=== PATIENT | female | born 1985 | race African-American/Black ===

== ENCOUNTER 2017-06-26 09:49 | Day surgery (SDC) | payer OTHER ==
[2017-06-26 11:06] VITALS: BP 120/76; TEMP 98; BMI 27.4
--- NOTE | 2017-06-26 16:51 | PRG ---
DATE OF SERVICE: 06/26/2017 OR ER ENCOUNTER PRIMARY OB: Clinic. CHIEF COMPLAINT: Abdominal pain and spotting. HISTORY OF PRESENT ILLNESS: The patient is a 32-year-old G5, P4 female with an intrauterine pregnan cy at 36 weeks and 6 days who presented to labor and delivery by EMS with complaints of abdominal pa in since last night and spotting. She denies any leakage of fluid, any persistent bleeding. She re ports she is having good movement. She denies any falls or illness or fever, headache, chest pain, shortness of breath, nausea or vomiting. She denies hip or knee problems, urinary urgency or frequency. PAST MEDICAL HISTORY: She is deaf. PAST SURGICAL HISTORY: She has had a LEEP procedure. OBSTETRIC HISTORY: She has had 4 term vaginal births, essential hypertension, off medication during this so far. SOCIAL HISTORY: Denies drug, alcohol or tobacco use. ALLERGIES: No known drug allergies. MEDICATIONS: vitamins. OB LABS: Unavailable. REVIEW OF SYSTEMS: Per HPI. PHYSICAL EXAMINATION: VITAL SIGNS: Blood pressure is 117/73, heart rate of 88, respiratory rate of 16, temperature 98.0. GENERAL: She appears to be in no acute distress. She is alert and oriented, and cooperative and pl easant to interact with. HEAD: Normocephalic, atraumatic. LUNGS: Clear to auscultation bilaterally. HEART: Regular rate and rhythm. ABDOMEN: Soft and gravid and nontender to palpation. EXTREMITIES: Nontender with minimal edema. GENITOURINARY: Perineum was without masses, lesions or erythema. She does have a white discharge c oming from the perineum. Cervix is closed and thick and very posterior. REGULATORY LEADER-3 was collected for yaima luation. heart tracing performed for threatened labor. Baseline in the 140s with moderate long-term va riability, positive accelerations, no decelerations. She has some irritability on the monitor, but no regular contraction pattern. REGULATORY LEADER-3 was collected and found to be positive for yeast. ASSESSMENT AND PLAN: The patient is a 32-year-old female G5, P4 with an intrauterine at 3 6 weeks and 6 days who is presenting with abdominal pains and spotting. She is having occasional co ntractions. Baby appears to have a category 1 tracing. We did provide 2 mg of Stadol IM to help wi th her discomfort during her stay and has been given a prescription of Diflucan to be taken 150 mg o nce and is also been given the option to take a vaginal cream over the counter such as Monistat as d irected on the packaging. The patient has a followup appointment with Clinic next week, wh ich she has been encouraged to keep.
== END 2017-06-26 12:40 | disposition home or self-care (01) ==
LOC: L&D/OP 09:49
PROVIDERS: ATTEND Obstetrics & Gynecology
DX: O99.89 Other specified diseases and conditions complicating pregnancy, childbirth and the puerperium (principal); R10.30 Lower abdominal pain, unspecified; O26.853 Spotting complicating pregnancy, third trimester; H91.90 Unspecified hearing loss, unspecified ear; I10 Essential (primary) hypertension; Z3A.36 36 weeks gestation of pregnancy; Z79.899 Other long term (current) drug therapy; Z98.890 Other specified postprocedural states
CPT/HCPCS: 87480; 87510; 87660; 96372; J0595

== ENCOUNTER 2017-07-12 15:47 | Day surgery (SDC) | payer OTHER ==
[2017-07-12 16:40] VITALS: BMI 25.5
[2017-07-12] MEDS ORDERED: FLU VACC QS2017-18 36 mo. & older 0.5 ML SYRINGE IM ONE (17:00)
--- NOTE | 2017-07-12 21:24 | PRG ---
DATE OF ENCOUNTER: 07/12/2017 PRIMARY OB: Clinic. CHIEF COMPLAINT: Abdominal pain. HISTORY OF PRESENT ILLNESS: The patient is a 32-year-old G5, P4 female with an intrauterine pregnan cy at 37 weeks and 3 days, who is presenting to Labor and Delivery today with abdominal pain that be bossman yesterday. She reports that they have been getting more frequent and more intense. Denies any leakage of fluid or vaginal bleeding, any recent illness, fever, fall, headache, chest pain, shortne ss of breath, nausea, or vomiting. She denies any new rashes. She denies significant bleeding or u rinary urgency or frequency. PAST MEDICAL HISTORY: Significant for hypertension, off medications. The patient has a history of an abnormal Pap smear with a LEEP in 2016. The patient has deafness. LEEP OBSTETRIC HISTORY: She has had 4 term deliveries. SOCIAL HISTORY: Denies drug, alcohol, or tobacco use. ALLERGIES: No known drug allergies. MEDICATIONS: vitamins. OB LABS: Unavailable at this time. REVIEW OF SYSTEMS: Per HPI. PHYSICAL EXAMINATION: VITAL SIGNS: Blood pressure is 137/81, heart rate of 67, respiratory rate 20, satting 100% on room air, and temperature 98.5. GENERAL: She appears to be in no acute distress with some minor distress with contractions. She is alert and oriented, and cooperative and pleasant to interact with and is able to read lips. HEAD: Normocephalic, atraumatic. LUNGS: Clear to auscultation bilaterally. HEART: Regular rate and rhythm. ABDOMEN: Gravid and soft in between contractions and nontender. EXTREMITIES: Nontender, nonedematous. Her cervical exam has been unchanged over 2 hours at 1:15, -3 station. heart tracing performed for threatened labor, baseline for approximately 1 hour. Baseline is in the 140s with moderate long-term variability, positive accelerations, no decelerations. She is h aving contractions about every 6-7 minutes with occasional contractions every 3 minutes. ASSESSMENT AND PLAN: The patient is a 32-year-old G5, P4 female in latent labor and has had no armstrong ge in her cervix over 2 hours. She has been given 6 mg of morphine IM and have been discharged home with term labor precautions. She is to follow up with Clinic as scheduled or return here if necessary. The fetus has a category 1 tracing reactive NST.
== END 2017-07-12 19:05 | disposition home or self-care (01) ==
LOC: L&D/OP 15:47
PROVIDERS: ATTEND Obstetrics & Gynecology
DX: O99.89 Other specified diseases and conditions complicating pregnancy, childbirth and the puerperium (principal); R10.9 Unspecified abdominal pain; O16.3 Unspecified maternal hypertension, third trimester; Z79.899 Other long term (current) drug therapy; Z3A.37 37 weeks gestation of pregnancy
CPT/HCPCS: 96372; J2270

== ENCOUNTER 2017-07-15 21:56 | Day surgery (SDC) | payer OTHER ==
[2017-07-15 22:35] LABS: Amnisure Test No Membranes Rupture (No Rupture)
[2017-07-15 22:40] VITALS: BP 164/77; TEMP 98.3; BMI 26.2
[2017-07-15] MEDS ORDERED: Ondansetron ODT 4 MG TAB SL SCH (23:30)
[2017-07-15 23:35] LABS: #Eosinphils 0.2 thou/uL (0.0-0.7); #Lymphocytes 2.7 thou/uL (1.20-3.40); #Neutrophils 6.3 thou/uL (1.40-6.50); %Basophils 0.2 % (0.0-1.0); %Eosinophils 2.1 % (0.0-10.0); %Lymphocytes 26.2 % (21.0-51.0); %Monocytes 10.1 % (0.0-10.0); Hematocrit 32.4 % (36.0-47.0); Mean Platelet Volume 6.1 fL (7.4-10.4); Red Blood Cell (RBC) Count 3.35 mill/uL (4.20-5.40); White Blood Cell (WBC) Count 10.2 thou/uL (4.8-10.8)
[2017-07-15 23:46] LABS: Bilirubin Negative (Negative); Blood, Urine Negative (Negative); Glucose, Urine (Dipstick) Negative (Negative); Ketone, Urine Negative (Negative); Nitrite Negative (Negative); Protein, Urine (Dipstick) Negative (Neg-Trace)
[2017-07-15 23:48] LABS: Bacteria/HPF None Seen HPF (None Seen); Hyaline Casts/LPF 0-3 HYALINE CAST LPF (0-3 Hyaline); RBC/HPF None Seen HPF (0-3); Squamous Epithelial 0-3 HPF (0-3)
[2017-07-15 23:54] LABS: ALT (SGPT) 9 U/L (8-55); AST (SGOT) 15 U/L (5-34); Alkaline Phosphatase 189 U/L (40-150); Anion Gap 11 mmol/L (10-20); BUN (Urea Nitrogen) 6 mg/dL (7.0-18.7); Bilirubin, Total 0.7 mg/dL (0.2-1.2); Calc. Creatinine Clearance 145 mL/min (70-130); Carbon Dioxide 24 mmol/L (22-29); Chloride 107 mmol/L (98-107); Estimated GFR-MDRD Greater than 90; Globulin 3.6 g/dL (2.4-3.5); Protein, Total 6.8 g/dL (6.0-8.3)
[2017-07-16] MEDS ORDERED: Acetaminophen 325 MG TAB PO PRN (02:46)
[2017-07-16] MEDS ORDERED: FLU VACC QS2017-18 36 mo. & older 0.5 ML SYRINGE IM ONE (09:00)
--- NOTE | 2017-07-16 09:06 | ULT ---
ULTRASOUND OB FOLLOWUP: HISTORY: Evaluate for growth. Hypertension and diabetes. COMPARISON: None. TECHNIQUE: Real-time, watkins scale, and color evaluation of the gravid uterus performed by transabdominal approac h. FINDINGS: Single viable intrauterine with average ultrasound age 37 weeks 6 days. Estimated date of delivery 07/31/17. Estimated weight is 7 pounds 6 ounces. Cervix measures 2.9 cm in length. The placenta appears posteriorly. The renal pelvis measure just under 6 mm bilaterally. Amniotic fluid index measures 13.9 cm. Biparietal diameter: 37 weeks 1 day, 9.14 cm. Head circumference: 38 weeks 3 days, 33.52 cm. Abdominal circumference: 38 weeks 3 days, 34.51 cm. Femur length: 37 weeks 0 days, 7.24 cm. The estimated weight is 33rd percentile. The position is vertex and placental location is posteriorly. Four-chamber heart, stomach, kidneys, right kidney, left kidney, bladder, 3-vessel cord, nose, lips, and cord insertion are all normal. heart rate documented at 132 b.p.m. IMPRESSION: Single viable intrauterine with average ultrasound age 37 weeks 6 days with estimated date of delivery 07/31/17. Estimated weight is 7 pounds 6 ounces, 33rd percentile. POS: [facility]
== END 2017-07-16 06:38 | disposition home or self-care (01) ==
LOC: L&D/OP 21:56
PROVIDERS: ATTEND Obstetrics & Gynecology
DX: O47.1 False labor at or after 37 completed weeks of gestation (principal); O10.913 Unspecified pre-existing hypertension complicating pregnancy, third trimester; O24.313 Unspecified pre-existing diabetes mellitus in pregnancy, third trimester; E11.9 Type 2 diabetes mellitus without complications; H91.90 Unspecified hearing loss, unspecified ear; Z3A.37 37 weeks gestation of pregnancy; Z79.899 Other long term (current) drug therapy; Z87.891 Personal history of nicotine dependence
CPT/HCPCS: 36415; 36416; 76816; 80053; 81001; 82570; 84112; 84156; 85025; 87081; 87480; 87510; 87660; Q0162

== ENCOUNTER 2017-07-16 08:27 | Day surgery (SDC) | payer OTHER ==
--- NOTE | 2017-07-16 08:48 | PDOC.LDHP ---
Labor and Delivery H&P Chief complaint: abdominal pain HPI: 32 yo G5 P 4004 @ 38 weeks by lmp w/ DESMOND of 07/30/2017 presents for sharp abdominal pains that have been continuous since she was discharged this morning @ 0630. She originally presented for painful contractions and fluid loss and had elevated pressures at that time of 160s systolic. The care team at that time did an extensive workup including amnisure, VP3, CBC, CMP protein creatinine ratio and trended bps while pt remained on external monitors. Her monitors revealed contractions q 5 minutes w/ FHTs at that time of 140s mod variability, + accels, neg decels. She reported good movement and denied vaginal bleeding at that time. The amnisure done a few hours ago was negative. CBC showed anemia with Hgb of 11.1 Hct of 32. CMP revealed normal AST ALT of 15 and 9, respectively. Alk phos mildly elevated at 189. Spot protein/creatinine ratio was 13/113.7=.11, negative for s/s of pre-e. Importantly, the pt has a medical h/o htn, dm, hearing loss, poor/non-compliant care. She states she was receiving medical care from her pcp @ [facility], it is unclear what medication she is on for the BP and unclear if she is medicated for her DM. She is a very poor historian and it is difficult to assess if it is the hearing/lip reading communication barrier or if there is underlying developmental delay. She states that her pain is the same location and severity as it was last night and remains unchanged. Denies cp, sob, increased edema, and headache. Current gestational age (weeks): 38 Due date: 07/30/17 Dating criteria: last menstrual period Grav: 5 Para: 4 OB History Details: Blood type O+, RPR NR, Rubella Immune, HpBSAg neg, GBS neg Current complications: pregestational diabetes, hypertension Current medications: other (unknown bp medication) Social history: none - Physical Exam Vital signs reviewed and normal: yes Abnormal vital signs: previous BP 160s sys last night, currently 134/84 General: NAD, resting (no evidence of painful contractions) Heart: RRR Lungs: nonlabored breathing Abdomen: gravid Extremeties: trace edema FHT: category 1 [place] contractions every: mild, q15 min - Vaginal Exam cm dilated: 0 Effacement: 25% Station: -3 - OB Labs Blood type: O RH: positive RPR: negative HEPSAg: negative GBS: negative Urine drug screen: not done - Assessment TIUP @ 38 wks HTN subjective h/o DM - Plan Plan: observation in L&D -: labs all w/in normal limits done this am urine protein 13, urine creatinine 113.7 ratio=.11, amnisure negative ast=15, ALT=9, platelets= 303 VSS, afebrile 130s baseline, + acels, -decels, mod variability. no change since previous check, cervix closed, midposition, 20%, -3. we will dc home with instructions to f/u if increasing severity and frequency of contractions or large gush of fluid consult cm po hydrate, while obs <Jong Mensah - Last Filed: 07/16/17 09:16> - Plan Plan: other (Faculty: agree with above. Handwritten note in chart by me.) <Deandre Zheng - Last Filed: 07/16/17 10:59> Allergies/Adverse Reactions: Allergies Allergy/AdvReac Type Severity Reaction Status Date / Time No Known Allergies Allergy Verified 07/15/17 22:17
[2017-07-16 08:56] VITALS: BMI 25.7
[2017-07-16] MEDS ORDERED: Zolpidem Tartrate 5 MG TAB PO PRN (11:38)
--- NOTE | 2017-07-16 11:56 | PRG ---
DATE OF SERVICE: 07/16/2017 TIME: 1122 a.m. LOCATION: Labor and Delivery This is a post-observation note. In brief, this is a patient of the Clinic, who I evaluated earlier this morning at around 1 0:00 a.m. with the residents (Dr. Juarez and Dr. Bud Mensah, Family Medicine). She has a delgado ndwritten progress note at that time, but I was not able to see the patient due to an emergent prima ry on another patient shortly thereafter. I have since then evaluated the patient and fin d her clinically stable for discharge. There is no evidence of preeclampsia or of true active labor . Cervical exam reveals an internal os that is closed by nurse report with the external os being di lated. Last night she was called 2 cm, but that seems to be the external os. There is no evidence of vaginal bleeding or of ruptured membranes. She has a followup appointment with Clinic t omorrow. We will follow up with any leftover needs.
[2017-07-17] MEDS ORDERED: FLU VACC QS2017-18 36 mo. & older 0.5 ML SYRINGE IM ONE (09:00)
== END 2017-07-16 13:11 | disposition home or self-care (01) ==
LOC: L&D/OP 08:27
PROVIDERS: ATTEND Obstetrics & Gynecology
DX: O99.89 Other specified diseases and conditions complicating pregnancy, childbirth and the puerperium (principal); R10.9 Unspecified abdominal pain; O24.313 Unspecified pre-existing diabetes mellitus in pregnancy, third trimester; E11.9 Type 2 diabetes mellitus without complications; O10.913 Unspecified pre-existing hypertension complicating pregnancy, third trimester; Z3A.38 38 weeks gestation of pregnancy; Z79.899 Other long term (current) drug therapy; Z87.891 Personal history of nicotine dependence
CPT/HCPCS: 36415; 36416; 76816; 80053; 81001; 82570; 84112; 84156; 85025; 87077; 87081; 87389; 87480; 87510; 87660; Q0162

== ENCOUNTER 2018-01-03 13:11 | Emergency (ER) | payer OTHER | END 2018-01-03 14:09 | disposition home or self-care (01) | LOC: ERS 13:11 | DX: Z79.899 Other long term (current) drug therapy; K02.9 Dental caries, unspecified; Z87.891 Personal history of nicotine dependence; I10 Essential (primary) hypertension; K04.7 Periapical abscess without sinus | CPT/HCPCS: 99283 ==

== ENCOUNTER 2019-04-28 23:11 | Emergency (ER) | payer OTHER ==
[2019-04-28] MEDS ORDERED: Acetaminophen 500 MG TAB ONE (23:36)
[2019-04-28] MEDS ORDERED: Tobramycin Sulfate 0.3% Ophth Susp 5 ml Bottle FS SCH (23:45)
== END 2019-04-28 23:56 | disposition home or self-care (01) ==
LOC: ERS 23:11
DX: T16.2XXA Foreign body in left ear, initial encounter (principal); I10 Essential (primary) hypertension; Z87.891 Personal history of nicotine dependence
CPT/HCPCS: 69200

== ENCOUNTER 2019-08-20 18:22 | Day surgery (SDC) | payer OTHER ==
--- NOTE | 2019-08-20 19:35 | PDOC.FPROB ---
FMR OB H&P: HPI - History of Present Illness Chief Complaint: leakage of fluid Indentification: 34 yo G P at 36.3wks History of Present Illness: She presented to L&D for contractions q10-15 minutes and suspected leakage of fluid since last night. She states that she has been having irregular, painful contractions. She also notes that she feels a dribble of fluid after she urinates. She denies leakage of fluid while walking, standing or sitting. She has not needed to use a pad. She only notes "white fluid" after she urinates. She has recently been sexually active with her partner, no new partners. She denies vaginal bleeding, abnormal vaginal discharge, or decreased movement. Primary Care Physician: YOVANNY FMR OB H&P: Current - Care : 6 Para: 5005 Gestational age: 36.3 - OB Labs Blood type: unknown (No records available to review) FMR OB H&P: History - Past Medical History PMH: Possible h/o chronic HTN, not on medication Deafness - has hearing aid and reads lips. Uses sign language. - OB History OB History: , all term vaginal deliveries. - HEAD TRANSFER CLERK History HEAD TRANSFER CLERK History: Denies history of STDs - Surgical History Sx History: Denies - Social History Social History: Denies alcohol, tobacco, or illicit drug use. - Family History Family History: Non contributory FMR OB H&P: Medications - Current Home Medications: Medication Instructions Recorded Confirmed Type Vit No.130/Iron/Folic 1 each PO DAILY 07/12/17 08/20/19 History [ Tablet] Aspirin Chewable 81 mg PO DAILY 08/20/19 08/20/19 History Clotrimazole [Clotrimazole 1% 1 appful VAG HS #1 tube 08/20/19 Rx Vaginal Cream] Ondansetron [Zofran ODT] 4 mg PO Q6HR PRN 08/20/19 08/20/19 History metroNIDAZOLE [Metronidazole] 500 mg PO BID #14 tab 08/20/19 Rx Allergies/Adverse Reactions: Allergies Allergy/AdvReac Type Severity Reaction Status Date / Time No Known Allergies Allergy Verified 07/23/17 20:53 FMR OB H&P: ROS - Review of Systems General: denies: fever/chills, weight/appetite/sleep changes, fatigue Eyes: denies: eye pain, vision changes ENT: reports: nasal congestion. denies: rhinorrhea, sore throat Cardiovascular: denies: chest pain, palpitation, edema Respiratory: denies: cough, congestion, shortness of breath Gastrointestinal: denies: abdominal pain, nausea, vomiting, diarrhea, constipation Genitourinary (Female): reports: polyuria, contractions. denies: incontinence, dysuria, vaginal discharge, vaginal pain, vaginal bleeding Musculoskeletal: denies: pain, stiffness Neurologic: denies: numbness, weakness Integumentary: denies: itching, rash FMR OB H&P: Vital Signs - Maternal Vital signs: 140/79 --> 132/69 - Heart Tones Baseline: 140 Variability: moderate Acceleration: present Deceleration: absent FMR OB H&P: Physical Exam - Physical Exam General: NAD, awake, alert and oriented HEENT: normocephalic and atraumatic, EOMI, MMM, grossly normal vision Deviation from normal: Partially deaf Neck: supple, trachea midline Heart: RRR, normal S1/S2, no murmurs/rubs/gallops General: CTAB, no respiratory distress, good air movement Abdomen: soft, gravid Deviation from normal: TTP in the lower abdomen Musculoskeletal: normal gait and station, pulses present Neurological: cranial nerves II through XII intact Skin: no rash, good tugor, capillary refill <2 seconds Lymphatic: no unusual bruising or bleeding, no purpura, no petechia Psychiatric: intact recent and remote memory, normal mood and affect - Pelvic Exam Vulva: normal hair distribution SVE: Closed, thick and high. Extremely tender to examine. Membranes: Intact FMR OB H&P: Results - Labs Lab results: Laboratory Tests 08/20/19 19:20 Amnio Swab Test No Membranes Rupture VP3 --> Bacterial vaginosis. FMR OB H&P: A/P Disposition: Stable, discharged home w/ labor precautions. Discussion: Date/Time: 08/20/19 193 IUP FHT's reassuring, monitored >20 minutes. Vaginal discharge On physical exam, significant thick white discharge. Sent VP3. Results were bacterial vaginosis. Will d/c home with Metronidazole 500mg for 7 days. F/u with PNC. Leakage of fluid Amnisure negative Sterile speculum exam negative for pooling of fluid. Cervix closed, thick and high. The patient was monitored for >2 hours. She is not in labor. Medication for BV sent to pharmacy, instructed her to f/u with PNC next week. Given labor precautions. This H&P was discussed with Dr. Matthews and Dr. Loera who agree with the above documentation and plan. Addendum - Attending - Attending Attestation Date/Time: 08/21/19 9518 I personally evaluated the patient and discussed the management with Dr. Yeung I agree with the History, Examination, Assessment and Plan documented above with any addition or exceptions noted below. UA unremarkable. VP3 showed BV. Sent flagyl for 1 wk. D/C home. f/u outpatient. FHT reassuring.
[2019-08-20 19:42] LABS: Amnisure Internal Control QC ACCEPTABLE (ACCEPTABLE); Amnisure Test No Membranes Rupture (No Rupture)
[2019-08-20 19:49] VITALS: BMI 28.3
[2019-08-20] MEDS ORDERED: diphenhydrAMINE 25 MG CAP PO SCH (21:15)
[2019-08-20 21:47] LABS: Bacteria/HPF None Seen HPF (None Seen); Bilirubin Negative (Negative); Blood, Urine Negative (Negative); Clarity Clear (Clear); Glucose, Urine (Dipstick) Normal (Negative); Leukocyte Negative Leu/uL (Negative); Nitrite Negative (Negative); Protein, Urine (Dipstick) Negative (Neg-Trace); RBC/HPF None Seen HPF (0-3); Squamous Epithelial 0-3 HPF (0-3); Urobilinogen Normal mg/dL (Less than 2); WBC/HPF 0-3 HPF (0-3)
[2019-08-20 21:49] LABS: Urine Culture Reflex No No
[2019-08-21] MEDS ORDERED: FLU VACC QS2019-20(6MOS UP)/PF 60 MCG/0.5 ML SYRINGE IM ONE (09:00)
== END 2019-08-20 22:10 | disposition home or self-care (01) ==
LOC: L&D/OP 18:22
PROVIDERS: ATTEND Family Medicine
DX: O23.593 Infection of other part of genital tract in pregnancy, third trimester (principal); B96.89 Other specified bacterial agents as the cause of diseases classified elsewhere; O10.913 Unspecified pre-existing hypertension complicating pregnancy, third trimester; Z3A.36 36 weeks gestation of pregnancy; Z79.82 Long term (current) use of aspirin; Z79.899 Other long term (current) drug therapy; Z97.4 Presence of external hearing-aid
CPT/HCPCS: 81001; 84112; 87480; 87510; 87660; Q0163

== ENCOUNTER 2019-08-24 04:45 | Day surgery (SDC) | payer OTHER ==
[2019-08-24 05:30] VITALS: BP 142/82; TEMP 98.8; BMI 28.3
--- NOTE | 2019-08-24 06:31 | PDOC.FPROB ---
FMR OB H&P: HPI - History of Present Illness Chief Complaint: Lower abdominal pain Indentification: 34 yo at 37.0 weeks History of Present Illness: Patient presented to L&D with complaint of lower abdominal pain that started last night around 1800. She says the pain comes and goes, mainly located in epigastric and LLQ areas. She denies loss of fluid, dysuria, vaginal bleeding, abnormal vaginal discharge, or decreased movement. Patient was recently seen on L&D triage on 08/20/2019, UA clean at that time, found to be positive for Gardnerella and was sent Rx for Flagyl. However patient says she never picked up this Rx because she did not know she had one sent to her pharmacy. She has been taking Benadryl 4 times daily along with home ASA and PNV. Primary Care Physician: YOVANNY FMR OB H&P: Current - Care : 6 Para: 5005 Gestational age: 37.0 weeks - OB Labs Blood type: unknown (no records) FMR OB H&P: History - Past Medical History PMH: Partially deaf--has hearing aid and reads lips Possible h/o chronic HTN but no current BP meds - OB History OB History: all term - DIAMOND GRADER History DIAMOND GRADER History: none reported - Surgical History Sx History: none - Social History Social History: Denies tobacco or alcohol use. - Family History Family History: non-contributory FMR OB H&P: Medications - Current Home Medications: Medication Instructions Recorded Confirmed Type Vit No.130/Iron/Folic 1 each PO DAILY 07/12/17 08/20/19 History [ Tablet] Aspirin Chewable 81 mg PO DAILY 08/20/19 08/20/19 History Clotrimazole [Clotrimazole 1% 1 appful VAG HS #1 tube 08/20/19 Rx Vaginal Cream] Ondansetron [Zofran ODT] 4 mg PO Q6HR PRN 08/20/19 08/20/19 History metroNIDAZOLE [Metronidazole] 500 mg PO BID #14 tab 08/20/19 Rx Allergies/Adverse Reactions: Allergies Allergy/AdvReac Type Severity Reaction Status Date / Time No Known Allergies Allergy Verified 07/23/17 20:53 FMR OB H&P: ROS - Review of Systems General: denies: fever/chills, weight/appetite/sleep changes, fatigue Eyes: denies: vision changes, double vision ENT: denies: nasal congestion, sore throat Cardiovascular: denies: chest pain, palpitation, edema Respiratory: denies: cough, congestion, shortness of breath Gastrointestinal: reports: abdominal pain. denies: nausea, vomiting, diarrhea Genitourinary (Female): reports: contractions. denies: dysuria, hematuria, vaginal discharge, vaginal pain, vaginal bleeding Musculoskeletal: denies: pain, tenderness, decrease range of motion Neurologic: denies: numbness, weakness, loss of counsciousness Integumentary: denies: itching, rash, lesions Endocrine: denies: polyuria FMR OB H&P: Vital Signs - Maternal Vital signs: Vital Signs - First Documented Temp Pulse Resp BP Pulse Ox 98.8 F 74 16 142/82 H 98 08/24/19 05:26 08/24/19 05:26 08/24/19 05:26 08/24/19 05:08/24/19 05:26 - Heart Tones Baseline: 140 Variability: moderate Acceleration: present Deceleration: absent [place] contractions every: 8-10 min FMR OB H&P: Physical Exam - Physical Exam General: NAD, awake, alert and oriented HEENT: normocephalic and atraumatic, EOMI, MMM, grossly normal vision, grossly normal hearing Neck: supple, FROM Chest: non-tender to palpation Heart: RRR, normal S1/S2, no murmurs/rubs/gallops, pulses present, no edema General: CTAB, no respiratory distress, good air movement, no rales/rhonchi, no wheezing Abdomen: soft, non-tender, bowel sound present Deviation from normal: tender during contraction Musculoskeletal: pulses present, FROM in all four extremities Neurological: sensation to pain,touch and proprioception grossly normal, no focal deficit Skin: no rash, good tugor Lymphatic: no unusual bruising or bleeding Psychiatric: intact recent and remote memory, normal mood and affect - Pelvic Exam SVE: 3 Membranes: intact FMR OB H&P: A/P Disposition: #Term IUP -at 37.0 weeks today -cervical exam -FHT's reassuring, monitored >20 minutes -1 elevated BP 141/82, will continue to monitor serial BPs #Abdominal Pain -occurs during contractions, not present when no contractions -patient never picked up Flagyl Rx for BV. Counseled patient on importance of picking up this prescription from the pharmacy -will check UA -Morphine 8 mg x1 dose for pain control -Zofran 4 mg for nausea Dispo: Stable. Will continue to monitor BP. If has more elevated BPs then consider keeping. If rest of BP normal then will plan to discharge home with close followup at [facility]. Discussion: Date/Time: 08/24/19626 This H&P was discussed with Dr. Fang and Dr. Rabago who agree with the above documentation and plan. Addendum - Attending - Attending Attestation Date/Time: 08/24/19824 I personally evaluated the patient and discussed the management with Dr. Balderrama I agree with the History, Examination, Assessment and Plan documented above with any addition or exceptions noted below. Vital signs. pt having occassional mild range blood pressures. us neg for protein. Remaining pih labs pending. Dr Kolb coming on to take over care. Will make final disposition.
[2019-08-24] MEDS ORDERED: hydrALAZINE 20 MG/ML VIAL SLOW IVP PRN (06:33)
[2019-08-24] MEDS ORDERED: Ondansetron PF 4 MG/2 ML Vial IVP SCH (06:45)
[2019-08-24] MEDS ORDERED: Morphine 4 MG/ML VIAL SLOW IVP SCH (06:45)
[2019-08-24] MEDS ORDERED: Morphine 4 MG/ML VIAL IM SCH (07:00)
[2019-08-24] MEDS ORDERED: Ondansetron PF 4 MG/2 ML Vial IM SCH (07:00)
[2019-08-24 07:40] LABS: Bacteria/HPF None Seen HPF (None Seen); Bilirubin Negative (Negative); Blood, Urine Negative (Negative); Clarity Clear (Clear); Glucose, Urine (Dipstick) Normal (Negative); Leukocyte Negative Leu/uL (Negative); Nitrite Negative (Negative); Protein, Urine (Dipstick) Negative (Neg-Trace); RBC/HPF None Seen HPF (0-3); Squamous Epithelial 0-3 HPF (0-3); Urobilinogen Normal mg/dL (Less than 2); WBC/HPF None Seen HPF (0-3)
[2019-08-24 07:48] LABS: Urine Culture Reflex No No
[2019-08-24] MEDS ORDERED: Acetaminophen 500 MG TAB PO PRN (08:10)
[2019-08-24] MEDS ORDERED: Lactated Ringer's 1,000 ML IV SCH (08:15)
[2019-08-24] MEDS ORDERED: Sodium Chloride 0.9% 1,000 ML IV SCH (08:30)
[2019-08-24 09:07] LABS: ALT (SGPT) 14 U/L (8-55); AST (SGOT) 21 U/L (5-34); Albumin 3.4 g/dL (3.5-5.0); Alkaline Phosphatase 147 U/L (40-110); Anion Gap 13 mmol/L (10-20); BUN (Urea Nitrogen) 6 mg/dL (7.0-18.7); Bilirubin, Total 0.5 mg/dL (0.2-1.2); Calc. Creatinine Clearance 154 mL/min (70-130); Calcium 8.9 mg/dL (7.8-10.44); Carbon Dioxide 23 mmol/L (22-29); Chloride 103 mmol/L (98-107); Estimated GFR-MDRD Greater than 90; Globulin 3.2 g/dL (2.4-3.5); Glucose 92 mg/dL (70-105); Potassium 4.5 mmol/L (3.5-5.1); Protein, Total 6.6 g/dL (6.0-8.3); Sodium 134 mmol/L (136-145)
[2019-08-24 09:08] LABS: #Eosinphils 0.6 thou/uL (0.0-0.7); #Lymphocytes 2.8 thou/uL (1.20-3.40); #Monocytes 1.5 thou/uL (0.11-0.59); #Neutrophils 9.7 thou/uL (1.40-6.50); %Basophils 0.3 % (0.0-1.0); %Eosinophils 4.3 % (0.0-10.0); %Monocytes 10.2 % (0.0-10.0); %Neutrophils 66.2 % (42.0-75.0); Hemoglobin 9.5 g/dL (12.0-16.0); Mean Corpuscular HGB CONC 32.6 g/dL (32.0-36.0); Mean Corpuscular Hemoglobin 29.1 pg (27.0-31.0); Mean Corpuscular Volume 89.2 fL (78.0-98.0); Platelet Count 332 thou/uL (130-400); RBC Distribution Width 13.2 % (11.5-14.5); Red Blood Cell (RBC) Count 3.26 mill/uL (4.20-5.40); White Blood Cell (WBC) Count 14.7 thou/uL (4.8-10.8)
[2019-08-24 10:44] LABS: Creatinine, Urine 21.16 mg/dL (47-110); Protein, Urine Random Quant Less than 10 mg/dL (1-14)
[2019-08-24] MEDS ORDERED: Promethazine HCl 25 MG/ML VIAL IM PRN (11:47)
[2019-08-24 12:21] LABS: Amphetamine Not Detected (NotDetected); Barbiturates Screen Not Detected (NotDetected); Benzodiazepine Screen Not Detected (NotDetected); Cocaine Metabolite Screen Not Detected (NotDetected); Medtox Control Line Valid? VALID (VALID); Medtox Reader # READER 4; Methadone Not Detected (NotDetected); Methamphetamine Not Detected (NotDetected); Opiate Screen Not Detected (NotDetected); Oxycodone Screen Not Detected (NotDetected); Phencyclidine (PCP) Not Detected (NotDetected); THC/Cannabinoid Screen Not Detected (NotDetected); Tricyclic Screen Not Detected (NotDetected)
[2019-08-24 12:57] LABS: HBSAg Index 0.13 S/CO (0-0.99); HIV (1/2) Antibody/Antigen Non-Reactive (NonReactive); HIV 1/2 INDEX 0.16 S/CO (<1.00); Hep B Surf Ag Non-Reactive S/CO (NonReactive)
[2019-08-24 13:38] LABS: Syphilis Antibody Nonreactive (Nonreactive); Syphilis Antibody Index 0.04 S/CO (<1.00 Non-Reactive)
[2019-08-24 14:11] LABS: HBSAB Concentration 9.56 mIU/mL; Hep B Surf AB EQUIVOCAL (NonReactive)
--- NOTE | 2019-08-24 14:43 | PDOC.LDPN ---
Labor & Delivery Progress Note - Subjective Subjective: comfortable - Objective Vital signs reviewed and normal: yes General: NAD, resting Uterine fundus: non tender Dilation: 1 Effacement: 0% Station: -3 FHT: category 1, variability present [place] contractions every: Intermittent contractions - Assessment (1) Hypertension affecting Code(s): O16.9 - UNSPECIFIED MATERNAL HYPERTENSION, UNSPECIFIED TRIMESTER Status: Acute (2) ASCUS with positive high risk HPV Code(s): NZS9662 - Status: Acute Comment: Colpo in 01/2016 and now repeat PAP showing ASCUS with high risk HPV. Needs a repeat colpo post (3) Hearing impaired Code(s): H91.90 - UNSPECIFIED HEARING LOSS, UNSPECIFIED EAR Status: Acute (4) Term Code(s): Z34.80 - ENCOUNTER FOR SUPRVSN OF NORMAL , UNSP TRIMESTER Status: Chronic Plan: other -: 34 yo at 37.0 weeks presented for Abdominal pain. -Pt had some mildy elevated pressures upon admission. Pressures were elevated up to the high 140's. -Pre-E labs drawn and were all within normal limits. Pt was observed through the morning and afternoon and pressures ended up trending down to 120/80's. No severe range noted. -Pt had pain off and on. At this time likely related to recent dx vaginitis infection. She has not picked up tx since seen a few days ago. -Pt has had poor PNC. All labs were drawn and WNL. US perforemd. COURTNEY 11, BPP 8/ 8 and there was no concern with growth. -Patient had cervical checks for concern for contractions and remained unchanged. Dispo: At this time pain is likely related to round ligament pain. Pt at this time has no reason for early induction. There is concern for poor follow up due to her mental delay. We have extensively talked with patients guardian and discussed discharge and return precautions. Px fiorcet for pain to take if tylenol doesn't work. Will have pt follow up at [facility] next at 9:45. Plan for induction around 38-39 weeks 2/2 chronic hypertension. Addendum - Attending - Attending Attestation Date/Time: 08/24/19 2362 I personally evaluated the patient and discussed the management with Dr. Cruz. 34 yo multip with h/o chronic HTN and limited PNC. Workup for preE today negative. SVE unchanged. status reassuring. To f/u at PNC next week. I agree with the History, Examination, Assessment and Plan documented above.
--- NOTE | 2019-08-24 14:45 | ULT ---
Complete obstetrical ultrasound INDICATION: Poor care TECHNIQUE: Grayscale, M-mode Doppler and Doppler images were obtained of the abdomen and pelvis to ev aluate the patient's known . Umbilical Doppler images were obtained. COMPARISON: None. FINDINGS: Number of gestations: Single. Presentation: Cephalic. Placental location: Anterior Previa: No evidence for previa. Cervical length: 4.5 cm COURTNEY: 11.5 cm. heart rate: 149 bpm. There was difficulty in measuring the abdominal circumference and biparietal diameter due to advanced gestational age and positioning. Biparietal diameter: 9.04cm, 36 weeks and 4 days, 55th percentile. Head circumference: 31.67 cm, 35 weeks and 4 days, 5th percentile Abdominal circumference: 35.75 cm, 39 weeks and 5 days, 99 percentile Femoral length: 6.93cm, 35 weeks 4 days, 15th percentile Estimated weight: 3221 g g +/- 477g 7 lbs. 2 oz. +/- 17 ounce, 69th percentile SURVEY: survey is limited due to advanced gestational age. head: Normal appearing. Cerebellum: Not well seen. Cisterna magna: Not well seen Lateral ventricles: Normal appearing. 4 chamber heart: Normal appearing.. Stomach: Normal appearing. Kidneys: Normal appearing. Cord insertion: Normal appearing. Bladder: Normal appearing. Spine: Lower cervical spine not well seen. The remaining CT and L-spine appear within normal limits. Lips and nose: Normal appearing. Extremities: Normal appearing. Three-vessel CORD: Normal appearing. The average gestational age by ultrasound is 35 weeks and 1 daywith estimated due date of August.. The estimated dates by clinical data is 37 weeks 0 dayswith estimated due date of September 14, 2019. Umbilical artery spectral Doppler imaging: There is persistent diastolic flow. The systolic diastolic ratio at the placenta was 1.94, at mid cord 1.96 and at the insertion 1.97. IMPRESSION: 1. Single live intrauterine gestation with size and dates as above. 2. Some limitations to the survey due to advanced gestational age and positioning.
--- NOTE | 2019-08-24 14:45 | ULT ---
BIOPHYSICAL PROFILE: INDICATION: Poor care. COMPARISON: Complete obstetrical ultrasound performed concurrently. Please see this dictation for further details . FINDINGS: Biophysical profile was 8 out of 8. tone: 2 out of 2. breathin out of 2. movement: 2 out of 2. Amniotic fluid level: 2 out of 2. IMPRESSION: Biophysical profile of 8 out of 8. Transcribed Date/Time: 08/24/2019 2:50 PM
--- NOTE | 2019-08-24 14:46 | ULT ---
Please see the separately dictated complete obstetrical ultrasound for further details.
== END 2019-08-24 15:30 | disposition home or self-care (01) ==
LOC: L&D/OP 04:45
PROVIDERS: ATTEND Obstetrics & Gynecology
DX: O47.1 False labor at or after 37 completed weeks of gestation (principal); O99.89 Other specified diseases and conditions complicating pregnancy, childbirth and the puerperium; H91.90 Unspecified hearing loss, unspecified ear; O10.913 Unspecified pre-existing hypertension complicating pregnancy, third trimester; O23.593 Infection of other part of genital tract in pregnancy, third trimester; Z3A.37 37 weeks gestation of pregnancy; Z79.82 Long term (current) use of aspirin; Z79.899 Other long term (current) drug therapy; Z97.4 Presence of external hearing-aid
CPT/HCPCS: 36415; 51701; 76805; 76819; 80053; 80306; 81001; 82570; 84156; 85025; 86706; 86762; 86780; 86850; 86900; 86901; 87081; 87340; 87389; 93975; 96360; 96361; 96372; 99285; J2270; J2405

== ENCOUNTER 2019-08-27 20:03 | Day surgery (SDC) | payer OTHER ==
[2019-08-27 20:58] VITALS: BP 130/65; TEMP 98.1; BMI 29.2
[2019-08-27 21:25] LABS: Amnisure Internal Control QC ACCEPTABLE (ACCEPTABLE); Amnisure Test No Membranes Rupture (No Rupture)
[2019-08-27] MEDS ORDERED: hydrALAZINE 20 MG/ML VIAL SLOW IVP PRN ×2 (21:39→23:50)
[2019-08-27] MEDS ORDERED: Acetaminophen 325 MG TAB PO PRN (21:40)
--- NOTE | 2019-08-27 21:47 | PDOC.FPROB ---
FMR OB H&P: HPI - History of Present Illness Chief Complaint: contractions, dereased movement Indentification: 34 yo at 37.4 weeks History of Present Illness: Brisa is a 34yo who presents for evaluation of abdominal cramping and decreased movement. She has been to L&D two times prior in the last week for similar complaints. She states that the pain has persistently getting worse. She states that this morning she felt like the baby wasn't moving as much as usual. She checked her BP at home and noted it to be ~180/102. She is extremely anxious about the decrease in movement and her blood pressure and her contractions. She states she is just ready to have the baby. Primary Care Physician: PNC - unknown provider FMR OB H&P: Current - Care : 6 Para: [id number] Gestational age: 37.4 - OB Labs Blood type: O RH: positive Antibody Screen: negative HIV: negative RPR: negative HepBsAg: negative Rubella: immune GBS: negative H&H: 9.5/29.1 (08/24) Platelets: 332 FMR OB H&P: History - Past Medical History PMH: Partially deaf, has hearing aid and reads lips. Chronic HTN - OB History OB History: All ([facility]) - FURNACE CHECKER History FURNACE CHECKER History: H/o BV, otherwise unknown. - Surgical History Sx History: None - Social History Social History: Denies tobacco, alcohol, or illicit drug use. - Family History Family History: Non-contributory FMR OB H&P: Medications - Current Home Medications: Medication Instructions Recorded Confirmed Type Acetaminophen [Tylenol Extra 1,000 mg PO Q6H PRN tab 08/24/19 Rx Strength] Aspirin Chewable [Aspirin Chewable 81 mg PO DAILY #30 tab 08/24/19 Rx Tablet] Butalbital/Acetaminophen/Caffe 1 - 2 tab PO Q6HR PRN #60 tab 08/24/19 Rx [Fioricet] Clotrimazole [Clotrimazole 1% 1 appful VAG HS #1 tube 08/24/19 Rx Vaginal Cream] Ondansetron [Zofran ODT] 4 mg PO Q6HR PRN #30 tab 08/24/19 Rx Vit No.130/Iron/Folic 1 each PO DAILY #30 tablet 08/24/19 Rx [ Tablet] Bjstsejz91/Iron/Folic Acid/Dha 1 capsule PO DAILY #30 capsule 08/24/19 Rx [Prena1 Mi Softgel] metroNIDAZOLE [Metronidazole] 500 mg PO BID #14 tab 08/24/19 Rx hydrOXYzine [Atarax] 25 mg PO QID PRN #30 tab 08/28/19 Rx Allergies/Adverse Reactions: Allergies Allergy/AdvReac Type Severity Reaction Status Date / Time No Known Allergies Allergy Verified 08/27/19 20:41 FMR OB H&P: ROS - Review of Systems General: reports: weight/appetite/sleep changes. denies: fever/chills Eyes: denies: eye pain, vision changes, double vision ENT: denies: nasal congestion, rhinorrhea, sore throat Cardiovascular: reports: chest pain. denies: palpitation, edema Respiratory: reports: shortness of breath. denies: cough, congestion Gastrointestinal: reports: abdominal pain, cramping, nausea. denies: vomiting, diarrhea, constipation, bright red blood Genitourinary (Female): reports: polyuria, contractions. denies: incontinence, dysuria, hematuria, vaginal discharge, vaginal pain, vaginal bleeding, vaginal pressure Musculoskeletal: denies: pain, stiffness, tenderness Neurologic: reports: headache. denies: numbness, syncope, seizures, weakness Integumentary: denies: itching, rash, lesions Psychological: reports: anxiety FMR OB H&P: Vital Signs - Maternal Vital signs: Vital Signs - First Documented Temp Pulse Resp BP 98.1 F 96 18 130/65 08/27/19 20:24 08/27/19 20:24 08/27/19 20:24 08/27/19 20:24 - Heart Tones Baseline: 130 Variability: moderate Acceleration: present Deceleration: absent [place] contractions every: irregular FMR OB H&P: Physical Exam - Physical Exam General: NAD, awake, alert and oriented HEENT: normocephalic and atraumatic, PERRLA, EOMI, MMM, conjunctiva clear, grossly normal vision, oropharynx clear Deviation from normal: decreased hearing Neck: supple, trachea midline Heart: RRR, normal S1/S2, no murmurs/rubs/gallops, pulses present General: CTAB, no respiratory distress, good air movement, no rales/rhonchi, no wheezing Abdomen: soft, gravid, non-tender, bowel sound present Musculoskeletal: normal gait and station, pulses present Neurological: cranial nerves II through XII intact, sensation to pain,touch and proprioception grossly normal Skin: no rash, good tugor, capillary refill <2 seconds Lymphatic: no unusual bruising or bleeding, no purpura, no petechia Deviation from normal: Anxious mood/affect. - Pelvic Exam SVE: per RN @ 1/thick/high FMR OB H&P: Results - Labs Lab results: Laboratory Results - last 24 hr 08/27/19 21:10 Amnio Swab Test No Membranes Rupture - Imaging Imaging: US 08/24/2019: Cephalic, anterior placenta, COURTNEY 11.5, estimated weight 69th percentile. Normal anatomy. FMR OB H&P: A/P Disposition: Term IUP -at 37.4 weeks today -cervical exam 1 / thick / high -recheck of cervix revealed no change >2 hours later -she was monitored for signs of labor with monitoring and tocometer for > 2 hours. She had reassuring FHTs in the 130s with good variability. She had irregular contractions approximately 10 minutes apart. H/o chronic HTN - BP reported 180/102 at home - Normotensive here 122/70, no elevated pressures. - Will induce at 38 wks gestation for chronic HTN. Abdominal Pain - patient is not salvador on the monitor. when she complains of abdominal pain, her abdomen is soft. She did have occasional contractions, however they were >8 minutes apart and irregular. - Patient has untreated BV which may be contributing to uterine irritability. - given 1 dose of stadol for pain and hydroxyzine for anxiety. Sent hydroxyzine to pharmacy. Dispo: Stable. Discharged home with labor precautions and plans for induction on Friday for EGA of 38 wks. Will obtain records prior to then. Discussion: Date/Time: 08/27/192146 This H&P was discussed with [] and [] who agree with the above documentation and plan. Addendum - Attending - Attending Attestation Date/Time: 08/28/19 9533 I personally evaluated the patient and discussed the management with Dr. Yeung I agree with the History, Examination, Assessment and Plan documented above with any addition or exceptions noted below. vital signs reviewed and remained wnl. no evidence of elevated bp over the course of her stay. h/o chtn not on medication. pt scheduled for iol at 38wks.
[2019-08-27] MEDS ORDERED: hydrOXYzine 25 MG TAB PO SCH (22:00)
[2019-08-27 22:03] LABS: #Eosinphils 0.5 thou/uL (0.0-0.7); #Lymphocytes 2.6 thou/uL (1.20-3.40); #Monocytes 1.6 thou/uL (0.11-0.59); #Neutrophils 9.4 thou/uL (1.40-6.50); %Basophils 0.2 % (0.0-1.0); %Eosinophils 3.2 % (0.0-10.0); %Lymphocytes 18.7 % (21.0-51.0); %Monocytes 11.2 % (0.0-10.0); %Neutrophils 66.7 % (42.0-75.0); Hemoglobin 8.9 g/dL (12.0-16.0); Mean Corpuscular Hemoglobin 29.1 pg (27.0-31.0); Mean Corpuscular Volume 88.2 fL (78.0-98.0); Mean Platelet Volume 6.7 fL (7.4-10.4); Platelet Count 338 thou/uL (130-400); RBC Distribution Width 13.7 % (11.5-14.5); Red Blood Cell (RBC) Count 3.07 mill/uL (4.20-5.40); White Blood Cell (WBC) Count 14.1 thou/uL (4.8-10.8)
[2019-08-27 22:20] LABS: Bacteria/HPF None Seen HPF (None Seen); RBC/HPF 0-3 HPF (0-3); Squamous Epithelial 0-3 HPF (0-3); WBC/HPF 0-3 HPF (0-3)
[2019-08-27 22:21] LABS: ALT (SGPT) 15 U/L (8-55); AST (SGOT) 27 U/L (5-34); Albumin 3.2 g/dL (3.5-5.0); Alkaline Phosphatase 146 U/L (40-110); Anion Gap 14 mmol/L (10-20); BUN (Urea Nitrogen) 8 mg/dL (7.0-18.7); Bilirubin, Total 0.4 mg/dL (0.2-1.2); Calc. Creatinine Clearance 137 mL/min (70-130); Calcium 8.9 mg/dL (7.8-10.44); Carbon Dioxide 21 mmol/L (22-29); Chloride 105 mmol/L (98-107); Estimated GFR-MDRD Greater than 90; Globulin 3.4 g/dL (2.4-3.5); Glucose 88 mg/dL (70-105); Potassium 4.5 mmol/L (3.5-5.1); Protein, Total 6.6 g/dL (6.0-8.3); Sodium 135 mmol/L (136-145)
[2019-08-27 22:44] LABS: Creatinine, Urine 38.17 mg/dL (47-110); Protein, Urine Random Quant Less than 10 mg/dL (1-14)
[2019-08-27] MEDS ORDERED: NS / Oxytocin 40 units/1000ml 1,000 ML IV PRN (23:50)
[2019-08-27] MEDS ORDERED: Lidocaine 1% (PF) 30 ML VIAL SC PRN (23:50)
[2019-08-27] MEDS ORDERED: Promethazine HCl 25 MG/ML VIAL IM PRN (23:50)
[2019-08-27] MEDS ORDERED: Ibuprofen 800 MG TAB PO PRN (23:50)
[2019-08-27] MEDS ORDERED: Butorphanol Tartrate 1 MG/ML VIAL SLOW IVP PRN (23:50)
[2019-08-27] MEDS ORDERED: Misoprostol 200 MCG TAB PR PRN (23:50)
[2019-08-27] MEDS ORDERED: Carboprost 250 MCG/ML AMP IM PRN (23:50)
[2019-08-27] MEDS ORDERED: Ondansetron PF 4 MG/2 ML Vial IVP PRN (23:50)
[2019-08-27] MEDS ORDERED: Misoprostol 100 MCG TAB VAG SCH (23:59)
[2019-08-28] MEDS ORDERED: Butorphanol Tartrate 1 MG/ML VIAL SLOW IVP SCH (00:15)
[2019-08-28] MEDS ORDERED: Butorphanol Tartrate 1 MG/ML VIAL IM SCH (00:18)
== END 2019-08-28 00:40 | disposition home health service (06) ==
LOC: L&D/OP 20:03
PROVIDERS: ATTEND Obstetrics & Gynecology
DX: O36.8130 Decreased fetal movements, third trimester, not applicable or unspecified (principal); O99.89 Other specified diseases and conditions complicating pregnancy, childbirth and the puerperium; R10.9 Unspecified abdominal pain; H91.90 Unspecified hearing loss, unspecified ear; O23.593 Infection of other part of genital tract in pregnancy, third trimester; B96.89 Other specified bacterial agents as the cause of diseases classified elsewhere; O99.343 Other mental disorders complicating pregnancy, third trimester; F41.9 Anxiety disorder, unspecified; O10.913 Unspecified pre-existing hypertension complicating pregnancy, third trimester; Z3A.37 37 weeks gestation of pregnancy; Z97.4 Presence of external hearing-aid
CPT/HCPCS: 36415; 80053; 81015; 82570; 84112; 84156; 85025; J0595

== ENCOUNTER 2019-08-29 12:58 | Day surgery (SDC) | payer OTHER ==
[2019-08-29] MEDS ORDERED: hydrALAZINE 20 MG/ML VIAL SLOW IVP PRN (15:40)
[2019-08-29] MEDS ORDERED: Morphine 4 MG/ML VIAL IM SCH (15:45)
[2019-08-29] MEDS ORDERED: Ondansetron ODT 8 MG TAB SL SCH (15:45)
[2019-08-29 15:51] VITALS: BMI 24.2
[2019-08-29 15:52] VITALS: BP 133/66; TEMP 98.8
--- NOTE | 2019-08-29 19:13 | PRG ---
DATE OF SERVICE: 08/29/2019 PRIMARY OB: Clinic. CHIEF COMPLAINT: Abdominal pain and elevated blood pressure. HISTORY OF PRESENT ILLNESS: The patient is a 34-year-old G6, P5 female with an intrauterine at 37 weeks and 5 days, presenting to Labor and Delivery with concerns of having elevated blood pressures. The patient reports she has had a blood pressure at home as high as 180 in the last few days. She has a history of chronic hypertension, has been on medications in the past, but none required during this . The patient reports headache; nausea; extensive pelvic, back, and hip pain that has made it very difficult for her to ambulate and get around even from the bed to her bathroom at times. The patient is unable to describe how frequently or how these contractions are, but she does report that activity and movement are very difficult. The patient denies fever. Denies any recent falls, chest pain, shortness of breath, vomiting, diarrhea, constipation, vaginal bleeding, leakage of fluid, or urinary urgency or frequency. PAST MEDICAL HISTORY: Deafness, chronic hypertension, anxiety, depression. PAST SURGICAL HISTORY: Negative. ALLERGIES: NO KNOWN DRUG ALLERGIES. MEDICATIONS: vitamins. SOCIAL HISTORY: Has a history of tobacco use. Denies current tobacco, alcohol, or drug use. OB LABS: Blood type is O positive. She is GBS negative. She is rubella immune. Hepatitis B surface antigen is negative. Syphilis RPR is negative. REVIEW OF SYSTEMS: Per HPI. PHYSICAL EXAMINATION: VITAL SIGNS: The patient was watched over course of nearly 2 hours with blood pressures ranging from 109/58 to 130 to 146/82 with a single mild ranged pressure, the rest being normal. Pulse is in the 80s, respiratory rate 20, saturating 100% on room air, temperature 98.8. GENERAL: She appears to be in no acute distress. She is alert, oriented, cooperative, and pleasant to interact with. HEAD: Normocephalic, atraumatic. LUNGS: Clear to auscultation bilaterally. HEART: Has regular rate and rhythm. ABDOMEN: Gravid and soft. She does have tenderness with deviation and movement of the uterus in her lower pelvis. EXTREMITIES: Nontender, nonedematous. : Cervical exam per nursing staff is 1, thick, and -3 station. heart tracing shows the fetus with a baseline in the 120s with moderate long-term variability, positive 15 x 15 accelerations. Contractions, she has irritability with contractions about every 7 to 10 minutes. ASSESSMENT AND PLAN: The patient is a 34-year-old female with history of chronic hypertension, off medications entire at 37 weeks and 5 days, presenting with abdominal pain. The patient has no evidence of labor at this time. Her blood pressure has been controlled without medication. We do have her scheduled for indicated induction of labor at 38 weeks and a day to be coming this Friday evening for Cytotec induction. Fetus has a category 1 tracing and reactive NST. Job ID: [id number]
== END 2019-08-29 17:50 | disposition home health service (06) ==
LOC: L&D/OP 12:58
PROVIDERS: ATTEND Obstetrics & Gynecology
DX: O99.89 Other specified diseases and conditions complicating pregnancy, childbirth and the puerperium (principal); R10.2 Pelvic and perineal pain; M54.9 Dorsalgia, unspecified; M25.559 Pain in unspecified hip; H91.90 Unspecified hearing loss, unspecified ear; O10.913 Unspecified pre-existing hypertension complicating pregnancy, third trimester; O99.343 Other mental disorders complicating pregnancy, third trimester; F41.9 Anxiety disorder, unspecified; F32.9 Major depressive disorder, single episode, unspecified; Z3A.37 37 weeks gestation of pregnancy; Z87.891 Personal history of nicotine dependence
CPT/HCPCS: J2270

== ENCOUNTER 2019-09-01 19:26 | Inpatient (IN) | payer OTHER ==
[2019-09-01 20:13] VITALS: BMI 29.2
[2019-09-01] MEDS: Lactated Ringer's 1,000 ML IV SCH (21:02)
[2019-09-01] MEDS ORDERED: hydrALAZINE 20 MG/ML VIAL SLOW IVP PRN (22:37)
[2019-09-01] MEDS ORDERED: Promethazine HCl 25 MG/ML VIAL IM PRN (22:37)
[2019-09-01] MEDS ORDERED: Ondansetron PF 4 MG/2 ML Vial IVP PRN (22:37)
[2019-09-01] MEDS ORDERED: Acetaminophen 500 MG TAB PO PRN (22:37)
[2019-09-01] MEDS ORDERED: Ibuprofen 800 MG TAB PO PRN (22:38)
[2019-09-01] MEDS ORDERED: Misoprostol 200 MCG TAB PR PRN (22:38)
[2019-09-01] MEDS ORDERED: Lidocaine 1% (PF) 30 ML VIAL SC PRN (22:38)
--- NOTE | 2019-09-01 22:39 | PDOC.LDHP ---
Labor and Delivery H&P Chief complaint: scheduled induction HPI: Patient is a 34F @ 38.1wga by 18.2wk cathy that presents for scheduled IOL for cHTN. 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 She has been taking a PNV and an anti- nausea medication but cannot recall the name. She reports she has also been taking tylenol #3 lately that she got from a recent ED visit. She does not currently take any medications for her cHTN. She denies vaginal discharge or bleeding. Reports she can feel baby move. Denies headaches, cp, sob, abdominal pain, swelling at this time. Reports she has been feeling contractions q10min or so. Reports that she would like an epidural at some point during labor, but not currently. 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 Current medications: pre-ashish vitamins, other (anti-nausea med, tylenol #3) Previous surgical history: none Allergies/Adverse Reactions: Allergies Allergy/AdvReac Type Severity Reaction Status Date / Time No Known Allergies Allergy Verified 08/27/19 20:41 Social history: none - Physical Exam Vital signs reviewed and normal: yes General: NAD, resting Heart: RRR Lungs: nonlabored breathing Abdomen: NTTP Extremeties: trace edema FHT: category 1, variability present [place] contractions every: q6-8min - Vaginal Exam cm dilated: 1 Effacement: 0% Station: -3 - OB Labs Blood type: O RH: positive Antibody Screen: negative HIV: negative RPR: negative HEPSAg: negative 1 hour GCT: negative GBS: negative Rubella: immune - Assessment L&D Assessment: medically indicated induction - Plan Plan: admit to L&D, cervical ripening, labor augmentation if indicated, anesthesia consult for pain management -: Patient is a 34F @ 38.1wga by 18.2wk cathy admitted for IOL for cHTN #term intrauterine #induction for cHTN -BP 132/58 -reactive strip -patient having contractions q6-8min on the strip -1/thick/high @ 2230 -GBS negative -will proceed with IOL, place first cytotec #Depression -will continue to monitor Dispo: admitted to L&D for IOL for cHTN, placing first cytotec. Will repeat cervical check in 4 hrs, will continue to monitor. Epidural consult in place if patient elects for one. Discussed plan of care with Dr. Muñiz, who is agreeable with the current plan. Addendum - Attending - Attending Attestation Date/Time: 09/02/19 6326 I personally evaluated the patient and discussed the management with Dr. Cote. I agree with the History, Examination, Assessment and Plan documented above with any addition or exceptions noted below.
[2019-09-01 22:51] LABS: Hemoglobin 9.1 g/dL (12.0-16.0); Mean Corpuscular HGB CONC 32.6 g/dL (32.0-36.0); Mean Corpuscular Hemoglobin 28.9 pg (27.0-31.0); Mean Corpuscular Volume 88.6 fL (78.0-98.0); Mean Platelet Volume 7.3 fL (7.4-10.4); Platelet Count 348 thou/uL (130-400); RBC Distribution Width 14.6 % (11.5-14.5); Red Blood Cell (RBC) Count 3.14 mill/uL (4.20-5.40)
[2019-09-01] MEDS: Misoprostol 100 MCG TAB VAG SCH (23:01)
[2019-09-01 23:32] LABS: HBSAg Index 0.16 S/CO (0-0.99); Hep B Surf Ag Non-Reactive S/CO (NonReactive)
[2019-09-02] MEDS ORDERED: Fentanyl 4 mcg/Bup 0.1% Cadd 0 ML ONE (01:03)
[2019-09-02] MEDS ORDERED: diphenhydrAMINE 50 MG/ML VIAL IVP PRN (01:48)
[2019-09-02] MEDS ORDERED: Naloxone HCl 0.4 mg/ml Vial IVP PRN ×2 (01:48)
[2019-09-02] MEDS ORDERED: Ondansetron PF 4 MG/2 ML Vial IVP PRN (01:48)
[2019-09-02] MEDS ORDERED: Lactated Ringer's 500 ML IV PRN (01:48)
[2019-09-02] MEDS ORDERED: Promethazine HCl 25 MG/ML VIAL IM PRN (01:48)
[2019-09-02] MEDS ORDERED: ePHEDrine/0.9% NaCl/PF SYRINGE 50 mg/10 ml SLOW IVP PRN (01:48)
[2019-09-02] MEDS: Fentanyl 4 mcg/Bupivacaine 0.1% Cassette 100 ML EPIDURAL SCH ×2 (01:49→12:55)
[2019-09-02] MEDS ORDERED: Communication Order-Pharmacy FS SCH (02:00)
--- NOTE | 2019-09-02 02:53 | PDOC.LDPN ---
Labor & Delivery Progress Note - Subjective Subjective: comfortable - Objective Vital signs reviewed and normal: yes (BP 135/71) General: NAD, resting Uterine fundus: non tender SVE: /-3 FHT: category 1, variability present [place] contractions every: 2-3min Plan: continue plan of care, labor augmentation -: Patient is a 34F @ 38.2wga by 18.2wk sono admitted for IOL for cHTN #term intrauterine #induction for cHTN -BP 135/71 -reactive strip -patient having contractions q2-3min on the strip, contractions have started to accelerate during the last hour -patient received epidural -/-3 @ 0215 -GBS negative -will wait for contractions to space before placing another cytotec #Depression -will continue to monitor Dispo: admitted to L&D for IOL for cHTN, ctx q2-3. Waiting for ctx to space slightly before adding another cytotec. Will repeat cervical check in 4 hrs, will continue to monitor. Discussed plan of care with Dr. Muñiz, who is agreeable with the current plan.
[2019-09-02] MEDS: Lactated Ringer's 1,000 ML IV SCH ×3 (04:29→12:55)
--- NOTE | 2019-09-02 05:50 | PDOC.LDPN ---
Labor & Delivery Progress Note - Subjective Subjective: comfortable - Objective Vital signs reviewed and normal: yes General: NAD, resting Uterine fundus: tender to palpation SVE: /-3 FHT: category 1, variability present [place] contractions every: 3-5min Plan: continue plan of care, pitocin for augmentation -: Patient is a 34F @ 38.2wga by 18.2wk sono admitted for IOL for cHTN #term intrauterine #induction for cHTN -BP 115/86, pulse 74 -patient having contractions q3-5min on the strip -patient received epidural -/-3 @ 0425 -GBS negative -osuna score of 6, will begin pit #Depression -will continue to monitor Dispo: admitted to L&D for IOL for cHTN, ctx q3-5. Will start pit at this time. Will repeat cervical check 2hrs after starting pit, will continue to monitor. Discussed plan of care with Dr. Muñiz, who is agreeable with the current plan.
--- NOTE | 2019-09-02 06:26 | PDOC.LDPN ---
Labor & Delivery Progress Note - Subjective Subjective: comfortable, other (Patient complained of mild itching) - Objective Vital signs reviewed and normal: yes Abnormal vital signs: BP: 122/63 General: NAD, resting Dilation: 3 Effacement: 75% Station: -3 FHT: category 1, acceleration absent, absent or minimal variables [place] contractions every: Q4M Plan: continue plan of care, pitocin for augmentation -: Patient is a 34 y/o @ 38.2W by 18.2W US admitted to L&D for IOL for cHTN. 1. Term SIUP -See #2 2. IOL 10/31 to cHTN -BP: 122/63 @ 0630 on 09/02/19 -CTX Q4 -s/p epidural - pain currently well controlled -Pitocin @ 6mU/min -SVE: /-3 @ 0425 - next check at 0745 -GBS: Negative -Sandra Score: 6, will continue to evaluate 3. Depression -Continue to monitor -Plan to screen for PPB, PPD, PPP following delivery Dispo: Admitted to L&D for IOL for cHTN, currently well-controlled. Category 1 strip w/ FHTs in the 130s, CTX Q4M. Pitocin currently running @ 6 mU/min. Repeat SVE Q2H, continue to monitor progression of labor.
[2019-09-02] MEDS ORDERED: NS w/ Oxytocin 10 units 500 ML IV SCH (06:30)
--- NOTE | 2019-09-02 08:07 | PDOC.LDPN ---
Labor & Delivery Progress Note - Subjective Subjective: comfortable, vaginal pressure - Objective Vital signs reviewed and normal: yes General: NAD, resting, breathing through contractions Uterine fundus: non tender Dilation: 3 Effacement: 75% Station: -3 FHT: category 1, variability present [place] contractions every: Q2-4M Plan: continue plan of care, pitocin for augmentation -: Patient is a 34 y/o @ 38.2W by 18.2W US admitted to L&D for IOL for cHTN. 1. SIUP w/ IOL / to cHTN -BP: 122/63 @ 0630 on 09/02/19 -Maternal VSS -Cat 1 strip w/ FHTs in the 140s -CTX Q2-4M -s/p Epidural - pain currently well controlled -Pitocin @ 7mU/min -SVE: 3/75/-3 @ 0800 - next check at 1000 -GBS: Negative -Sandra Score: 6, will continue to evaluate 2. Depression -Continue to monitor -Plan to screen for PPB, PPD, PPP following delivery Dispo: Admitted to L&D for IOL for cHTN, currently well-controlled. Category 1 strip w/ FHTs in the 140s, CTX Q4M. Pitocin currently running @ 7 mU/min. Repeat SVE Q2H, continue to monitor progression of labor.
--- NOTE | 2019-09-02 13:02 | PDOC.LDPN ---
Labor & Delivery Progress Note - Subjective Subjective: painful contractions - Objective Vital signs reviewed and normal: yes General: resting, breathing through contractions FHT: category 2, variability present AROM: clear fluid Plan: continue plan of care -: Patient is a 34 y/o @ 38.2W by 18.2W US admitted to L&D for IOL for cHTN. 1. SIUP w/ IOL 2/2 to cHTN -BP have been normotensive -Maternal VSS -s/p Epidural - pain currently well controlled -SVE: 375/-3 @ 0800 -SVE 375/-3 @ approx 1000 -SVE 375/-3 @ 12:45 -Cat 2 strip w/ FHTs in the 120s, minimal variability for the last 20 minutes but moderate prior. Will continue to monitor -1300: AROM with clear fluid -GBS: Negative 2. Depression -Continue to monitor -Plan to screen for PPB, PPD, PPP following delivery Dispo: Admitted to L&D for IOL for cHTN, currently well-controlled. SVE q2h, continue to monitor progression of labor.
--- NOTE | 2019-09-02 14:09 | PDOC.LDPN ---
Labor & Delivery Progress Note - Subjective Subjective: comfortable, vaginal pressure - Objective Vital signs reviewed and normal: yes General: NAD Uterine fundus: non tender SVE: 1410 Dilation: 4 Effacement: 75% Station: -2 FHT: category 2, variability present [place] contractions every: Q2-3M Plan: continue plan of care, pitocin for augmentation -: Patient is a 34 y/o @ 38.2W by 18.2W US admitted to L&D for IOL for cHTN. 1. SIUP w/ IOL 2/2 to cHTN -BP readings have been normotensive -Maternal VSS -s/p Epidural - pain currently well controlled -SVE: 3/75/-3 @ 0800 -SVE: 3/75/-3 @ approx 1000 -SVE: 3/75/-3 @ 12:45 -SVE: 4/75/-2 @ 1410 -Cat 2 strip w/ FHTs in the 120s, minimal variability for the last 20 minutes but moderate prior. Will continue to monitor -1300: AROM with clear fluid -GBS: Negative 2. Depression -Continue to monitor -Plan to screen for PPB, PPD, PPP following delivery Dispo: Admitted to L&D for IOL for cHTN, currently well-controlled. SVE Q2H continue to monitor progression of labor.
[2019-09-02 14:50] LABS: Syphilis Antibody Nonreactive (Nonreactive); Syphilis Antibody Index 0.05 S/CO (<1.00 Non-Reactive)
--- NOTE | 2019-09-02 16:34 | PDOC.LDPN ---
Labor & Delivery Progress Note - Subjective Subjective: painful contractions - Objective Vital signs reviewed and normal: yes General: NAD, resting Dilation: 6 Station: 0 FHT: category 1, early decelerations, variability present Plan: continue plan of care -: Patient is a 34 y/o @ 38.2W by 18.2W US admitted to L&D for IOL for cHTN. 1. SIUP w/ IOL 2/2 to cHTN -BP readings have been normotensive -Maternal VSS -s/p Epidural - pain currently well controlled -SVE: 3/75/-3 @ 0800 -SVE: 3/75/-3 @ approx 1000 -SVE: 3/75/-3 @ 12:45 -1300: AROM with clear fluid -SVE: 4/75/-2 @ 1410 -SVE 6/80/-3 @ 1600 FHTs cat 1, salvador q3 minutes, baseline 130, early decels present -GBS: Negative -Continue pitocin for labor augmentation 2. Depression -Continue to monitor -Plan to screen for PPB, PPD, PPP following delivery Dispo: Admitted to L&D for IOL for cHTN, currently well-controlled. SVE Q2H continue to monitor progression of labor.
[2019-09-02] MEDS: NS / Oxytocin 40 units/1000ml 1,000 ML IV PRN ×2 (17:00→21:02)
[2019-09-02 19:37] LABS: Bacteria/HPF None Seen HPF (None Seen); Bilirubin Negative (Negative); Blood, Urine Negative (Negative); Clarity Clear (Clear); Glucose, Urine (Dipstick) Normal (Negative); Leukocyte Negative Leu/uL (Negative); Nitrite Negative (Negative); Protein, Urine (Dipstick) Negative (Neg-Trace); RBC/HPF 0-3 HPF (0-3); Squamous Epithelial 0-3 HPF (0-3); Urobilinogen Normal mg/dL (Less than 2)
[2019-09-02 19:44] LABS: ALT (SGPT) 17 U/L (8-55); AST (SGOT) 26 U/L (5-34); Albumin 2.9 g/dL (3.5-5.0); Alkaline Phosphatase 150 U/L (40-110); Anion Gap 11 mmol/L (10-20); BUN (Urea Nitrogen) 4 mg/dL (7.0-18.7); Bilirubin, Total 0.3 mg/dL (0.2-1.2); Calc. Creatinine Clearance 167 mL/min (70-130); Calcium 8.2 mg/dL (7.8-10.44); Carbon Dioxide 21 mmol/L (22-29); Chloride 106 mmol/L (98-107); Estimated GFR-MDRD Greater than 90; Globulin 3.2 g/dL (2.4-3.5); Glucose 99 mg/dL (70-105); Potassium 3.7 mmol/L (3.5-5.1); Protein, Total 6.1 g/dL (6.0-8.3); Sodium 134 mmol/L (136-145); Uric Acid 5.1 mg/dL (2.6-6.0)
--- NOTE | 2019-09-02 19:49 | PDOC.OPDEL ---
OB Operative/Delivery Note Delivery Dr/Surgeon: Dr. Byron Handley, Dr. Martina Ugarte, Dr. Glen Valdovinos Pre-Delivery Diagnosis: medically indicated induction (cHTN) Procedure/Post Delivery Dx: spontaneous vaginal delivery Weeks gestation: 38 (2) Anesthesia: epidural - Additional Findings/Plan Placenta delivered: spontaneous Repaired Obstetrical Laceration: none Estimated blood loss: 220 Compilations/Other Findings: At 1652 normal spontaneous vaginal delivery of live female, CARINA over intact perineum with epidural anesthesia. Clear fluid with no nuchal cords. 1 cord knot noted. Spontaneous delivery of placenta with 3-vessel cord. No lacerations. QBL: 220. Post delivery plan: routine recovery Addendum - Attending - Attending Attestation Date/Time: 09/03/19 2395 I personally evaluated the patient and discussed the management with Dr. Ugarte I agree with the History, Examination, Assessment and Plan documented above with any addition or exceptions noted below. I was present for the entire second and thirds stages of labor supervising.
[2019-09-02] MEDS ORDERED: Calcium Gluconate 4.6 MEQ in Sodium Chloride 0.9% 100 ML IVPB PRN (21:42)
[2019-09-02] MEDS ORDERED: Magnesium Sulfate 20 gm/500 ml 20 GM/500 ML BAG IVPB SCH (21:45)
[2019-09-02] MEDS ORDERED: Magnesium Sulfate 20 GM/WATER 500 ML BAG IVPB SCH (21:45)
--- NOTE | 2019-09-02 21:47 | PDOC.EVN ---
Event Note - Event Note Event Note: Pt having repetative severe range bp. has been treated twice now. dtr are normal. urine protein is neg. pt with h/o chtn but has been off medication for many years now. will start magnesium for sz prophylaxis. iv hydralazine prn.
[2019-09-02] MEDS: Acetaminophen 325 MG TAB PO PRN (22:08)
[2019-09-03] MEDS: Lactated Ringer's 1,000 ML IV SCH (05:01)
[2019-09-03] MEDS: Acetaminophen 325 MG TAB PO PRN ×2 (05:55→22:31)
--- NOTE | 2019-09-03 06:02 | PDOC.PP ---
Post Progress Note Post Day #: 1 Subjective: Patient was resting comfortably in her hospital bed with her at bedside during the evaluation. She had no acute overnight events, and specifically denied headaches or changes in vision. Per nursing staff, she has been tolerating her Mg well - with the exception of some subjective flushing - and her QH neuro checks have been unremarkable. PO intake tolerated: yes Flatus: yes Ambulation: no Weight Weight 77.111 kg - Physical Examination General: NAD Cardiovascular: no m/r/g, RRR Respiratory: clear to auscultation bilaterally, non-labored breathing Abdominal: lochia, no distention, appropriately TTP Extremities: negative homans (B) Skin: no rash Perineum: Scant bleeding WNL Neurological: no gross focal deficits Deviation from normal: Patient is deaf - difficult to assess fully Result Diagrams: 09/01/19 22:42 09/02/19 19:04 Additional Labs: Post Labs Blood Type O POSITIVE 09/01/19 22:42 Hep Bs Antigen Non-Reactive S/CO (NonReactive) 09/01/19 22:42 - Assessment/Plan 34 y/o [id number] female who delivered a TAGA F @ 1652 on 09/02/19. 1. SIUP, resolved -Patient currently recovering well on L&D -Able to tolerate PO intake -Bonding well with baby - breast and bottle feeds -Father at bedside -LR @ 75 ml/hr 2. Elevated Blood Pressure, -Patient had multiple severe-range BPs - 172/90 and 160/76 @ ~2108 and 2123 on 09/02/19, respectively -Urine Protein: Negative -s/p Hydralazine IV 5 mg x2 w/ ongoing Mg infusion @ 2 g/hr -Currently being monitored on L&D with QH neuro checks -Most recent BPs during shift have been WNL - no worrisome signs or symptoms -Patient has diagnosis of cHTN w/o medication, per nursing staff -Continue to monitor 3. Depression -Screen for PPB, PPD and PPP when patient is more alert -Continue to monitor Dispo: Patient is currently being monitored on L&D with QH neuro checks, ongoing Mg and LR infusions. Continue current plan of care and consider transfer to [facility]/Women[facility] Floor after 24H. Expected LOS < 48H.
[2019-09-03] MEDS: Misoprostol 100 MCG TAB VAG SCH ×5 (07:25→14:13)
--- NOTE | 2019-09-03 08:20 | PRG ---
DATE OF SERVICE: 09/03/2019 SUBJECTIVE: The patient is a 34-year-old multiparous female, day #1 status post a term spontaneous vaginal delivery, complicated by preeclampsia versus gestational hypertension versus exacerbation of chronic hypertension, now on magnesium for seizure prophylaxis. The patient this morning reports that she has been having some side effects from the magnesium, including sensation of getting hot. She reports she had a headache yesterday, but is now improved. She has required 2 doses of IV hydralazine. On further discussing her chronic hypertension history, she reports that she has been off her blood pressure medicine for about a year now. It is unclear whether she was taken off it by her doctor or whether it was because of insurance change. The patient reports that it was both reasons when directly asked. She also reports all of her records are with Julienne Valle here in the [facility]. The patient reports decreased bleeding. She has not been up to ambulate yet as has been on magnesium. OBJECTIVE: VITAL SIGNS: Current blood pressure is 127/63, heart rate of 83, respiratory rate is 20, and blood pressures through the last 24 hours or so since magnesium was placed, she has had 4 severe range pressures since delivery, none since her treatments with hydralazine and institution of magnesium. Most severe range pressure is 155/73 at 6:40 this morning. GENERAL: She appears to be in no acute distress. She is alert, oriented, cooperative, and pleasant to interact with. HEENT: Head is normocephalic and atraumatic. LUNGS: Clear to auscultation bilaterally. HEART: Has regular rate and rhythm. ABDOMEN: Unexamined due to position of mom and baby. However, nurse confirms that her bleeding has been normal. EXTREMITIES: DTRs consistent with my exam prior to magnesium institution. ASSESSMENT AND PLAN: This is day #1 status post term spontaneous vaginal delivery, on magnesium for seizure prophylaxis. We will start her on Procardia 30 mg XL given her history of chronic hypertension. She will be off magnesium this afternoon at about 5 o'clock and then we can re-evaluate for the next 24 hours to see if she is eligible for discharge home. Job ID: [id number]
[2019-09-03] MEDS ORDERED: NIFEdipine XL 30 MG TAB PO SCH ×2 (09:00→20:30)
[2019-09-03] MEDS ORDERED: Magnesium Sulfate 20 GM in Dextrose 5% in Water 460 ML IV SCH (09:20)
[2019-09-03] MEDS: Ibuprofen 800 MG TAB PO SCH ×2 (10:51→22:30)
--- NOTE | 2019-09-03 12:57 | PDOC.BPN ---
<Byron Handley - Last Filed: 09/03/19 12:52> - Brief Progress Note 34 y/o 1 day s/p IOL and for cHTN - delivered ZEFERINO F @ 1652 on 1. Elevated Blood Pressure, -Patient had multiple severe-range BPs - 172/90 and 160/76 @ ~2108 and 2123 on 09/02/19, respectively -Started on Mg Protocol - s/p Hydralazine IV 5 mg x2 w/ ongoing Mg infusion @ 2 g/hr -Urine Protein: Negative -Physical exam unremarkable - no complaints of headaches, dizziness or SOB, w/o LE edema or alterations to reflexes -Currently being monitored on L&D with QH neuro checks -Urine output averaging ~160 ml/hr -Most recent BPs have had SBP in the 140s - no severe-range pressures Dispo: Continue Mg Protocol as per above with QH neuro checks. Plan on discontinuing Mg infusion after 24H. <Solomon Kolb - Last Filed: 09/03/19 14:36> Addendum - Attending - Attending Attestation Date/Time: 09/03/19 4108 I personally evaluated the patient and discussed the management with Dr. Handley. I agree with the Assessment and Plan documented above.
[2019-09-03] MEDS ORDERED: HYDROcodone/Acetaminophen 5/325 mg Tablet PO SCH (15:15)
--- NOTE | 2019-09-03 16:16 | PDOC.BPN ---
<Deya Agosto - Last Filed: 09/03/19 16:12> - Brief Progress Note Pt seen at 1600 for mag check S: Doing well. Reports some lower abdominal cramping, just received a norco for this as tylenol and ibuprofen hadn't worked. Denies swelling, H/A, vision changes, SOB. O: Vitals stable. Multiple BP's in the mild range, but only one severe. Per nurse the patient was laying on her BP cuff at that time and the repeat was improved. UOP: range from 30-350mL/hr in the past 4 hours Neuro: no clonus, 2+ reflexes BLE A/P: Chronic HTN with superimposed severe range BP's -Continue mag to be stopped at 2230 if BP's remain stable -Hydralazine prn SBP > 160, DBP > 110 -Monitor UOP and reflexes <Solomon Kolb - Last Filed: 09/03/19 16:38> Addendum - Attending - Attending Attestation Date/Time: 09/03/19 8064 I personally evaluated the patient and discussed the management with Dr. Agosto. I agree with the Assessment and Plan documented above.
[2019-09-03] MEDS: hydrALAZINE 20 MG/ML VIAL SLOW IVP PRN ×2 (18:30→22:57)
--- NOTE | 2019-09-03 20:05 | PDOC.BPN ---
<Charla Cote - Last Filed: 09/03/19 20:09> - Brief Progress Note S: Doing well. Tolerated dinner well. Resting comfortably in bed. Denies swelling, H/A, vision changes, SOB. O: Vitals stable. BP 143/75, pulse 76. Some BP in the moderate range, though patient has improved now that she is relaxed. UOP: range from 175-350mL/hr in the past 4 hours Neuro: no clonus, 2+ reflexes BLE A/P: Chronic HTN -Continue mag to be stopped at 2230 if BP's remain stable -Hydralazine prn SBP > 160, DBP > 110 -Monitor UOP, BP, and reflexes <Solomon Klob - Last Filed: 09/03/19 21:19> Addendum - Attending - Attending Attestation Date/Time: 09/03/192117 I personally evaluated the patient and discussed the management with Dr. Cote. Spoke with Dr. Agosto, will add Procardia XL 30mg for now. I agree with the Assessment and Plan documented above.
[2019-09-03] MEDS: NIFEdipine XL 30 MG TAB PO SCH (21:18)
[2019-09-04] MEDS ORDERED: Milk Of Magnesia 30 ML UDCUP PO PRN (01:00)
[2019-09-04] MEDS ORDERED: Bisacodyl 10 MG SUPP PR PRN (01:00)
[2019-09-04] MEDS: HYDROcodone/Acetaminophen 5/325 mg Tablet PO PRN ×3 (02:14→20:20)
[2019-09-04] MEDS: Misoprostol 100 MCG TAB VAG SCH ×7 (03:12→18:20)
[2019-09-04] MEDS: Lactated Ringer's 1,000 ML IV SCH ×3 (03:12→12:23)
[2019-09-04] MEDS: Ibuprofen 800 MG TAB PO SCH ×3 (03:13→14:26)
[2019-09-04 05:09] LABS: Hemoglobin 8.3 g/dL (12.0-16.0); Mean Corpuscular HGB CONC 32.2 g/dL (32.0-36.0); Mean Corpuscular Hemoglobin 28.4 pg (27.0-31.0); Mean Corpuscular Volume 88.5 fL (78.0-98.0); Mean Platelet Volume 6.7 fL (7.4-10.4); Platelet Count 380 thou/uL (130-400); RBC Distribution Width 14.5 % (11.5-14.5)
--- NOTE | 2019-09-04 07:04 | PDOC.PP ---
Post Progress Note Post Day #: 2 Subjective: Patient was resting comfortably in her hospital bed, cradling her at the time of evaluation. She denied any acute overnight events, specifically with regard to headaches, changes in vision or chest pain. She complained of moderate pruritis and burning following her Mg infusion, but thought that it was resolving. She reported positive interactions with her and thought that she was interacting well with her. PO intake tolerated: yes Flatus: yes Ambulation: yes Vital Signs (12 hours) Temp Pulse Resp BP BP Pulse Ox 09/04/19 02:54 98.1 F 80 17 148/77 H 100 09/04/19 02:44 100 09/04/19 01:38 98.1 F 80 20 148/77 H 100 09/03/19 22:57 83 165/83 H 09/03/19 21:18 83 165/83 H Weight Weight 77.111 kg - Physical Examination General: NAD Cardiovascular: no m/r/g, RRR Respiratory: clear to auscultation bilaterally, non-labored breathing Abdominal: + bowel sounds, lochia (Scant vaginal bleeding, decreased from previous evaluation), no distention, appropriately TTP Fundus firm & at: Below level of Umbilicus Skin: no rash Neurological: no gross focal deficits Psychiatric: A&Ox3 Result Diagrams: 09/04/19 04:49 09/02/19 19:04 Additional Labs: Post Labs Blood Type O POSITIVE 09/01/19 22:42 Hep Bs Antigen Non-Reactive S/CO (NonReactive) 09/01/19 22:42 - Assessment/Plan 34 y/o [id number] female who delivered a TAGA F @ 1652 on 09/02/19. 1. SIUP, resolved -Patient currently recovering well on L&D -Able to tolerate PO intake -Bonding well with baby - bottle feeds primarily, still waiting for milk letdown 2. Elevated Blood Pressure, -Patient had multiple severe-range BPs - 172/90 and 160/76 @ ~2108 and 2123 on 09/02/19, respectively -Urine Protein: Negative -s/p Hydralazine IV 5 mg x2 and 24H Mg infusion @ 2 g/hr -No additional severe-range BPs, Mg Protocol DC'd -No worrisome signs or symptoms -Patient has diagnosis of cHTN w/o medication, per nursing staff -Consider starting additional BP medications prior to DC 3. Depression -Screen for PPB, PPD and PPP when patient is more alert -Continue to monitor Dispo: Patient is currently being monitored on [facility]. Continue current plan of care and plan for DC on 09/05/19 following 's TBili(36) and Hearing Screen. Ensure that adequate follow-up has been confirmed. Expected LOS < 24H.
[2019-09-04] MEDS ORDERED: Adacel (T-DAP) 0.5 ML SYRINGE IM ONE (09:00)
[2019-09-04] MEDS: Docusate Calcium (SURFAK) 240 MG CAP PO SCH ×2 (09:21→21:49)
[2019-09-04] MEDS: NIFEdipine XL 30 MG TAB PO SCH (09:21)
[2019-09-04] MEDS: Ferrous Sulfate 325 MG TAB PO SCH ×2 (09:22→18:20)
[2019-09-05] MEDS: Ibuprofen 800 MG TAB PO SCH ×2 (00:08→08:58)
[2019-09-05] MEDS: Lactated Ringer's 1,000 ML IV SCH (03:13)
[2019-09-05] MEDS: HYDROcodone/Acetaminophen 5/325 mg Tablet PO PRN (03:15)
[2019-09-05] MEDS: Acetaminophen 325 MG TAB PO PRN (03:19)
--- NOTE | 2019-09-05 04:51 | PDOC.PP ---
Post Progress Note Post Day #: 3 Subjective: Patient was feeding her from a bottle with her at bedside at the time of evaluation. She denied any acute overnight events, but did express concern over her blood pressure, which she knew to be elevated prior to admission. A discussion was had about the importance of blood pressure control in in patients, and the patient expressed desire to continue her blood pressure control after discharge. She also stated that she had been able to maintain PO intake and that her abdominal pain and vaginal bleeding was decreased. She still has not had a bowel movement, but was able to pass gas without difficulty. PO intake tolerated: yes Flatus: yes Ambulation: yes Vital Signs (12 hours) Temp Pulse Resp BP Pulse Ox 09/05/19 03:22 98.5 F 70 16 139/75 09/04/19 20:00 98.6 F 85 17 138/65 100 09/04/19 17:10 98.9 F 77 20 133/71 Weight Weight 77.111 kg - Physical Examination General: NAD Cardiovascular: no m/r/g, RRR Respiratory: clear to auscultation bilaterally, non-labored breathing Abdominal: lochia, no distention, appropriately TTP Fundus firm & at: Below Umbilicus Extremities: negative homans (B) Skin: no rash Neurological: no gross focal deficits Psychiatric: normal affect Result Diagrams: 09/04/19 04:49 09/02/19 19:04 Additional Labs: Post Labs Blood Type O POSITIVE 09/01/19 22:42 Hep Bs Antigen Non-Reactive S/CO (NonReactive) 09/01/19 22:42 - Assessment/Plan 34 y/o [id number] female who delivered a TAGA F @ 1652 on 09/02/19. 1. SIUP, resolved -Patient currently recovering well on [facility]/Women[facility] -Able to tolerate PO intake, passing urine and gas -Bonding well with baby - bottle feeds primarily, still waiting for milk letdown 2. Elevated Blood Pressure, -Patient had multiple severe-range BPs - 172/90 and 160/76 @ ~2108 and 2123 on 09/02/19, respectively -Urine Protein: Negative -s/p Hydralazine IV 5 mg x2 and 24H Mg infusion @ 2 g/hr -No additional severe-range BPs, Mg Protocol DC'd -No worrisome signs or symptoms -Patient has diagnosis of cHTN w/o medication, per nursing staff -Initiated Nifedipine 30 mg PO daily 3. Depression -Monitor for signs of PPB, PPD and PPP Dispo: Patient is currently being monitored on [facility]/Women's Floor. Continue current plan of care and plan for DC on 09/05/19. Ensure that adequate follow-up has been confirmed. Expected LOS < 24H. Addendum - Attending - Attending Attestation Date/Time: 09/05/19 5813 I personally evaluated the patient and discussed the management with Dr. Handley. I agree with the Assessment and Plan documented above.
[2019-09-05] MEDS: Ferrous Sulfate 325 MG TAB PO SCH (08:58)
[2019-09-05] MEDS: NIFEdipine XL 30 MG TAB PO SCH (08:58)
[2019-09-05] MEDS: Docusate Calcium (SURFAK) 240 MG CAP PO SCH (08:58)
[2019-09-05 10:48] VITALS: TEMP 98.4
[2019-09-05 12:37] VITALS: BP 139/74
--- NOTE | 2019-09-06 04:36 | DIS ---
DATE OF ADMISSION: 09/01/2019 DATE OF DISCHARGE: 09/05/2019 RESIDENT: Byron Handley MD ADMITTING ATTENDING: Eliana Marino MD DISCHARGE ATTENDING: Eileen Steven MD CONSULTS: Glen Rabago MD, [employer]BER hospitalist. PROCEDURE PERFORMED: Spontaneous vaginal delivery. PRIMARY DIAGNOSIS: Scheduled Induction of Labor SECONDARY DIAGNOSES: Hearing loss, chronic hypertension, hypertension affecting . DISCHARGE MEDICATIONS: Nifedipine 30 mg p.o. daily. DISCONTINUED MEDICATIONS: 1. Acetaminophen 500 mg p.o. q.6 hours. 2. Acetaminophen 650 mg p.o. q.4 hours. 3. Kellogg 5/325 one tab p.o. q.4 hours p.r.n. 4. Docusate calcium 240 mg p.o. b.i.d. 5. Ferrous sulfate 325 mg p.o. b.i.d. 6. Hydralazine 5 mg IV. 7. Ibuprofen 800 mg p.o. q.8 hours. 8. Lactated Ringer's at 125 mL/h. 9. Magnesium sulfate 20 g at 500 mL/h. 10. Cytotec 25 mcg vaginally q.3 hours. 11. Nifedipine 30 mg p.o. daily. 12. Zofran 4 mg IV q.6 hours. 13. Phenergan 12.5 mg IM q.4 hours. HISTORY OF PRESENT ILLNESS/HOSPITAL COURSE: Brisa Moran is a 34-year-old, G6, P5-0-0-5 at 38.1 weeks gestational age, dated by 18.2 week ultrasound, who presents for scheduled induction of labor for chronic hypertension. 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 She has been taking vitamin and antinausea medication, but cannot recall the name. She reports she has been taking Tylenol No. 3 lately that she got from a previous ER visit. She does not currently take any other medications, specifically with regard to her chronic hypertension. She denies vaginal discharge or bleeding. Reports sthat he can feel baby move. Denies headaches, chest pain, shortness of breath, abdominal pain, or swelling. Reports she has been feeling contractions every 10 minutes or so. Reports that she would like an epidural. As such, she was subsequently transferred to Labor and Delivery, where she was induced via Cytotec induction. Her labor progressed appropriately and she was able to deliver a TAGA female with Apgars of 8 and 9 at 1 and 5 minutes respectively. Her course was complicated by preeclampsia with severe features of multiple blood pressure readings above 160 systolic. As such, she was administered hydralazine 5 mg IV x2 and her blood pressure was maintained at an acceptable range. Magnesium protocol was initiated and she was administered a magnesium drip with every hour neuro checks. She had an uneventful recovery after that and was subsequently discontinued from the magnesium protocol and transferred to the [facility]/Women's Floor. Her vital signs remained relatively stable from that point onward. Blood pressure was adequately controlled with nifedipine 30 mg p.o. daily. Additionally, she was able to tolerate p.o. intake. Fundal height was measured on multiple physical examinations below the level of the umbilicus and lochia was minimal. She denied any significant symptoms and was subsequently prepped for discharge. Prior to discharge, her vital signs were recorded as temperature 98.4, heart rate 85, respirations 20 per minute, O2 saturations 100 % on room air, and blood pressure 139/74. LABORATORY ANALYSIS: On 09/04/2019 revealed a white blood cell count of 10, hemoglobin 8.3, hematocrit 25.7, platelet count 380. Urinalysis on 09/02/2019 revealed no urine, blood, nitrites, bilirubin, urobilinogen, or leukocyte esterase. Serology for syphilis and hepatitis B was nonreactive. DISPOSITION: Stable. DISCHARGE INSTRUCTIONS: 1. Location: Home. 2. Diet: No restrictions. 3. Activity: Pelvic rest for 6 weeks. 4. Followup: The patient was advised to follow up with her primary care physician within 1 to 2 weeks for a routine evaluation. Job ID: [id number] MTDD
== END 2019-09-05 14:15 | disposition home or self-care (01) | DRG 807 ==
LOC: L&D 19:26 → 3SW 09-04 01:43
PROVIDERS: ADMIT Obstetrics & Gynecology; ATTEND Obstetrics & Gynecology
PROC: 10907ZC Drainage of Amniotic Fluid, Therapeutic from Products of Conception, Via Natural or Artificial Opening (ICD-10-PCS; principal; 2019-09-02)
PROC: 10E0XZZ Delivery of Products of Conception, External Approach (ICD-10-PCS; 2019-09-02)
PROC: 3E0P7VZ Introduction of Hormone into Female Reproductive, Via Natural or Artificial Opening (ICD-10-PCS; 2019-09-02)
PROC: 3E033VJ Introduction of Other Hormone into Peripheral Vein, Percutaneous Approach (ICD-10-PCS; 2019-09-02)
DX: O10.92 Unspecified pre-existing hypertension complicating childbirth (principal); Z37.0 Single live birth; O99.344 Other mental disorders complicating childbirth; F32.9 Major depressive disorder, single episode, unspecified; Z3A.38 38 weeks gestation of pregnancy; O14.15 Severe pre-eclampsia, complicating the puerperium; H90.41 Sensorineural hearing loss, unilateral, right ear, with unrestricted hearing on the contralateral side; O69.1XX0 Labor and delivery complicated by cord around neck, with compression, not applicable or unspecified; L29.9 Pruritus, unspecified; O99.73 Diseases of the skin and subcutaneous tissue complicating the puerperium; O75.89 Other specified complications of labor and delivery
CPT/HCPCS: 36415; 51702; 80053; 81001; 83735; 84550; 85027; 86780; 86850; 86900; 86901; 87340; J0360; J1200; J2405; J3475; J7070

== ENCOUNTER 2020-03-01 11:25 | Outpatient (CLI) | payer OTHER ==
--- NOTE | 2020-03-01 13:35 | ULT ---
GALLBLADDER ULTRASOUND: 03/01/20 HISTORY: Abdominal pain. Technologist states that the patient is not n.p.o. The gallbladder is not well distended due to the nonfasting status. No evidence of gallstone identifi ed and no evidence of pericholecystic edema. Common duct normal caliber. The visualized liver, pancreas, and right kidney appears unremarkable. There are small cysts in the mid right kidney measuring 1 cm. Technologist describes a negative Andrea y's sign. IMPRESSION: Suboptimal exam due to nonfasting state. No evidence of gallstones. POS: AGW
== END 2020-03-01 11:26 | disposition home or self-care (01) ==
LOC: SCSULT 11:25
PROVIDERS: ATTEND Hospitalist
DX: R10.9 Unspecified abdominal pain (principal)
CPT/HCPCS: 76705